=== PATIENT | male | born 1995 ===

== ENCOUNTER 2016-11-09 02:36 | Emergency (ER) | payer SELFPAY ==
[~2016-11-09] VITALS: Ht 172.7 cm; Wt 58.1 kg
== END 2016-11-09 03:50 | disposition short-term general hospital (02) ==
LOC: ER 02:36
DX: S60.221A Contusion of right hand, initial encounter (principal); W22.8XXA Striking against or struck by other objects, initial encounter

== ENCOUNTER 2016-12-12 22:58 | Emergency (ER) | payer SELFPAY ==
[~2016-12-12] VITALS: Ht 167.6 cm; Wt 65.8 kg
== END 2016-12-13 01:40 | disposition short-term general hospital (02) ==
LOC: ER 22:58
DX: N34.2 Other urethritis (principal)
CPT/HCPCS: J0696